=== PATIENT | female | born 1935 | race Caucasian/White ===

== ENCOUNTER 2019-10-21 19:14 | Inpatient (IN) | payer MEDICARE ==
[~2019-10-21] VITALS: Ht 160 cm; Wt 78.6 kg
[2019-10-21 19:20] VITALS: BP 169/57
[2019-10-21 19:32] LABS: BILIRUBIN NEGATIVE (NEGATIVE); BLOOD NEGATIVE (NEGATIVE); CLARITY CLEAR (CLEAR); COLOR YELLOW (YELLOW); GLUCOSE NEGATIVE (NEGATIVE); KETONE NEGATIVE (NEGATIVE); LEUKO ESTERASE TRACE (NEGATIVE); NITRITE NEGATIVE (NEGATIVE); SPECIFIC GRAVITY 1.005 (1.005-1.030); UROBILINOGEN 0.2 E.U./dl (0.2-1.0)
--- NOTE | 2019-10-21 19:41 | NUR ---
PATIENT IN BED DRINKING ORANGE JUICE AT THIS TIME. AOX3. VSS. RN WILL CONT TO MONITOR.
[2019-10-21 19:47] LABS: BACTERIA 2+; RBC 0-2 rbc/hpf (0-2)
[2019-10-21 19:54] LABS: URINE AMPHETAMINES < 1000 (1000ng/ml); URINE BARBITURATES < 200 (200ng/ml); URINE BENZODIAZEPINES < 200 (200ng/ml); URINE CANNABINOIDS (THC) < 50 (50ng/ml); URINE COCAINE < 300 (300ng/ml); URINE METHADONE < 300 (300ng/ml); URINE OPIATES < 300 (300ng/ml); URINE PHENCYCLIDINE < 25 (25ng/ml)
[2019-10-21 20:00] LABS: BASO % 0.7 % (0.0-1.0); EOS # 0.2 10*3/uL (0.0-0.4); EOS % 2.7 % (1.0-4.0); HEMATOCRIT 36.8 % (37.0-47.0); HEMOGLOBIN 11.9 g/dl (12.0-16.0); LYMPH % 17.8 % (27.0-41.0); MEAN CELL VOLUME 97.6 fl (81.0-99.0); MEAN CORPUSCULAR HGB 31.6 pg (27.0-31.0); MEAN CORPUSCULAR HGB CONC 32.3 g/dl (33.0-37.0); MEAN PLATELET VOLUME 9.4 fl (9.6-12.3); MONO # 0.5 10*3/uL (0.1-1.0); MONO % 9.6 % (3.0-9.0); NEUT # 3.8 10*3/uL (2.3-7.9); NEUT % 68.8 % (47.0-73.0); PLATELET COUNT AUTOMATED 230 10*3/uL (130-400); RED BLOOD COUNT 3.77 10*6/uL (4.10-5.10); RED CELL DISTRI WIDTH 13.6 % (0-14.5); WHITE BLOOD COUNT 5.5 10*3/uL (4.8-10.8)
[2019-10-21 20:15] LABS: ACETAMINOPHEN (TYLENOL) < 5.0 ug/ml (10-30); ACT PARTIAL THROMBO TIME 24.9 SECONDS (20.0-32.1); ALBUMIN 3.7 gm/dl (3.1-4.5); ALKALINE PHOSPHATASE 87 U/L (45-117); BUN 40 mg/dl (7-24); CHLORIDE 106 mmol/L (98-107); CREATININE 1.65 mg/dL (0.55-1.02); ETHYL ALCOHOL < 3.0 mg/dl (<3); INTERNATIONAL NORM RATIO 0.9 (2.0-3.5); LIPASE 769 U/L (73-393); POTASSIUM 3.5 mmol/L (3.5-5.1); SGOT/AST 26 IU/L (3-35); SGPT/ALT 20 U/L (12-78); SODIUM 139 mmol/L (136-145); TOTAL PROTEIN 7.8 gm/dL (6.4-8.2); TROPONIN I < 0.015 ng/ml (<0.045)
[2019-10-21 20:23] VITALS: BP 128/60
--- NOTE | 2019-10-21 21:10 | NUR ---
PATIENT AMBULATORY TO THE RESTROOM AT THIS TIME
--- NOTE | 2019-10-21 21:17 | NUR ---
PATIENTS DAUGHTER INFORMED THAT PATIENT WILL BE ADMITTED.
[2019-10-21 21:42] VITALS: BP 130/60
[2019-10-22] VITALS: BP 150/84
--- NOTE | 2019-10-22 01:02 | NUR ---
PATIENT IN BED RESTING COMFORTABLY AOX3 EASILY AROUSED. NO DISTRESS NOTED. VOICES NO COMPLAINTS AT THIS TIME. RN WILL CONT TO MONITOR
[2019-10-22 01:30] VITALS: BP 150/84
--- NOTE | 2019-10-22 01:30 | NUR ---
Time: 129 A 83 year old FEMALE admitted to under services of ERNESTO GILLESPIE DO. Pt. arrived via stretcher from [facility]. Chief complaint: HYPOGLYCEMIA. NO WOUNDS ON ADMISSION. VACCINES UP TO DATE, FLU VACCINE THIS SEASON. ,HOMERO
[2019-10-22] MEDS ORDERED: SYNTHROID,LEVO75 MCG PO (01:38)
[2019-10-22] MEDS ORDERED: METFORMIN HYDR750 MG PO (01:38)
[2019-10-22] MEDS ORDERED: AMLODIPINE BESY10 MG PO (01:39)
[2019-10-22] MEDS ORDERED: GLIPIZIDE10 M1 PO (01:39)
[2019-10-22] MEDS ORDERED: FUROSEMIDE40 MG PO (01:39)
[2019-10-22] MEDS ORDERED: ALLOPURINOL300 MG PO (01:39)
[2019-10-22] MEDS ORDERED: ENALAPRIL MALEA20 MG PO (01:39)
[2019-10-22] MEDS ORDERED: ACEBUTOLOL HCL200 MG PO (01:40)
[2019-10-22] MEDS ORDERED: ATORVASTATIN CA40 M1 PO (01:41)
[2019-10-22] MEDS ORDERED: LIPITOR20 MG PO (02:09)
[2019-10-22] MEDS ORDERED: ASPIRIN81 M1 PO (02:10)
[2019-10-22] MEDS ORDERED: CALCIUM 600 +1 EA10 PO (02:21)
[2019-10-22] MEDS ORDERED: LANTUS SOL100 UNIT/1 SQ (02:22)
[2019-10-22 06:00] VITALS: BP 138/60
[2019-10-22 07:36] LABS: BASO % 0.6 % (0.0-1.0); EOS # 0.3 10*3/uL (0.0-0.4); EOS % 5.2 % (1.0-4.0); LYMPH # 1.9 10*3/uL (1.3-4.4); LYMPH % 35.8 % (27.0-41.0); MEAN CELL VOLUME 95.1 fl (81.0-99.0); MEAN CORPUSCULAR HGB 31.7 pg (27.0-31.0); MEAN CORPUSCULAR HGB CONC 33.3 g/dl (33.0-37.0); MEAN PLATELET VOLUME 9.7 fl (9.6-12.3); MONO # 0.8 10*3/uL (0.1-1.0); MONO % 14.7 % (3.0-9.0); NEUT # 2.3 10*3/uL (2.3-7.9); NEUT % 43.5 % (47.0-73.0); PLATELET COUNT AUTOMATED 227 10*3/uL (130-400); RED BLOOD COUNT 3.47 10*6/uL (4.10-5.10); RED CELL DISTRI WIDTH 13.6 % (0-14.5); WHITE BLOOD COUNT 5.2 10*3/uL (4.8-10.8)
[2019-10-22 07:59] LABS: CREATININE 1.25 mg/dL (0.55-1.02); PHOSPHOROUS 2.4 mg/dL (2.5-4.9); POTASSIUM 3.5 mmol/L (3.5-5.1)
[2019-10-22 08:00] VITALS: BP 130/54
[2019-10-22 08:07] LABS: FREE T4 1.22 ng/dl (0.76-1.46); THYROID STIM HORMONE (HS) 1.34 uIU/ml (0.358-4.75)
--- NOTE | 2019-10-22 11:20 | NUR ---
PT DISCHARGED HOME AT THIS TIME. [place]OCK REMOVED. PT TRANPORTED BY HER DAUGHTER.
[2019-10-24 13:45] LABS: VITAMIN D, 25-HYDROXY 49.8 ng/mL (30-100)
== END 2019-10-22 11:22 | disposition home or self-care (01) | DRG 638 ==
LOC: ED 19:14 → EDHOLD 10-22 00:41 → 4E 10-22 00:41
PROVIDERS: Emergency Medicine Emergency Medical Services; Internal Medicine; ADMIT Family Medicine
DX: E11.649 Type 2 diabetes mellitus with hypoglycemia without coma (principal); E87.2 Acidosis; N17.0 Acute kidney failure with tubular necrosis; I10 Essential (primary) hypertension; E03.9 Hypothyroidism, unspecified; D64.9 Anemia, unspecified; R00.1 Bradycardia, unspecified; R74.8 Abnormal levels of other serum enzymes; N28.1 Cyst of kidney, acquired; M1A.9XX0 Chronic gout, unspecified, without tophus (tophi); M19.90 Unspecified osteoarthritis, unspecified site; E78.5 Hyperlipidemia, unspecified; Z82.3 Family history of stroke; Z83.3 Family history of diabetes mellitus; Z82.49 Family history of ischemic heart disease and other diseases of the circulatory system; Z88.5 Allergy status to narcotic agent; Z83.6 Family history of other diseases of the respiratory system; Z79.4 Long term (current) use of insulin

== ENCOUNTER 2020-04-07 15:16 | Emergency (ER) | payer MEDICARE ==
[~2020-04-07] VITALS: Ht 160 cm; Wt 78.5 kg
[~2020-04-07 15:16] MED LIST: ACEBUTOLOL HCL200 MG PO; ALLOPURINOL300 MG PO; AMLODIPINE BESY10 MG PO; ASPIRIN81 M1 PO; ATORVASTATIN CA40 M1 PO; CALCIUM 600 +1 EA10 PO; ENALAPRIL MALEA20 MG PO; FUROSEMIDE40 MG PO; GLIPIZIDE10 M1 PO; LANTUS SOL100 UNIT/1 SQ; LIPITOR20 MG PO; METFORMIN HYDR750 MG PO; SYNTHROID,LEVO75 MCG PO
== END 2020-04-07 18:39 | disposition home or self-care (01) ==
LOC: ED 15:16
DX: S59.911A Unspecified injury of right forearm, initial encounter (principal); Z88.6 Allergy status to analgesic agent; Z79.899 Other long term (current) drug therapy; Z79.82 Long term (current) use of aspirin; W16.012A Fall into swimming pool striking water surface causing other injury, initial encounter; Y93.11 Activity, swimming; Y92.34 Swimming pool (public) as the place of occurrence of the external cause; Y99.8 Other external cause status

== ENCOUNTER 2022-10-18 20:10 | Emergency (ER) | payer MEDICARE ==
[~2022-10-18] VITALS: Ht 167.6 cm; Wt 78.5 kg
[2022-10-18 21:01] LABS: BASO % 0.5 % (0.0-1.0); EOS # 0.1 10*3/uL (0.0-0.4); HEMATOCRIT 35.8 % (37.0-47.0); LYMPH # 0.6 10*3/uL (1.3-4.4); LYMPH % 9.6 % (27.0-41.0); MEAN CELL VOLUME 91.6 fl (81.0-99.0); MEAN CORPUSCULAR HGB 29.7 pg (27.0-31.0); MEAN CORPUSCULAR HGB CONC 32.4 g/dl (33.0-37.0); MEAN PLATELET VOLUME 9.3 fl (9.6-12.3); MONO # 0.6 10*3/uL (0.1-1.0); MONO % 10.6 % (3.0-9.0); NEUT # 4.6 10*3/uL (2.3-7.9); NEUT % 78.1 % (47.0-73.0); PLATELET COUNT AUTOMATED 232 10*3/uL (130-400); RED BLOOD COUNT 3.91 10*6/uL (4.10-5.10); RED CELL DISTRI WIDTH 14.4 % (0-14.5); WHITE BLOOD COUNT 5.9 10*3/uL (4.8-10.8)
[2022-10-18 21:17] LABS: POTASSIUM 3.9 mmol/L (3.4-5.1)
[2022-10-18 22:01] LABS: BILIRUBIN Negative (Negative); BLOOD Negative (Negative); CLARITY Clear (Clear); COLOR Yellow (Yellow); GLUCOSE Negative (Negative); KETONE Negative (Negative); LEUKO ESTERASE 1+ (Negative); NITRITE Negative (Negative); PH 6.5 (4.5-8.0); UROBILINOGEN 0.2 E.U./dl (0.0-1.0)
[2022-10-18 22:56] LABS: WBC 16-20 wbc/hpf (0-5)
== END 2022-10-19 01:29 | disposition home or self-care (01) ==
LOC: ED 20:10
PROVIDERS: Emergency Medicine
DX: S76.011A Strain of muscle, fascia and tendon of right hip, initial encounter (principal); E11.649 Type 2 diabetes mellitus with hypoglycemia without coma; I10 Essential (primary) hypertension; M19.90 Unspecified osteoarthritis, unspecified site; M10.9 Gout, unspecified; E78.5 Hyperlipidemia, unspecified; E03.9 Hypothyroidism, unspecified; Z88.5 Allergy status to narcotic agent; Z68.25 Body mass index [BMI] 25.0-25.9, adult; Z90.710 Acquired absence of both cervix and uterus; Z98.890 Other specified postprocedural states; E78.00 Pure hypercholesterolemia, unspecified; Z79.899 Other long term (current) drug therapy; W07.XXXA Fall from chair, initial encounter; Y93.89 Activity, other specified; Y92.89 Other specified places as the place of occurrence of the external cause; Y99.8 Other external cause status

== ENCOUNTER 2023-07-04 10:23 | Emergency (ER) | payer MEDICARE ==
[~2023-07-04] VITALS: Ht 160 cm; Wt 79.9 kg
[2023-07-04 12:33] LABS: BASO % 0.7 % (0.0-1.0); EOS # 0.3 10*3/uL (0.0-0.4); EOS % 5.2 % (1.0-4.0); HEMATOCRIT 32.6 % (37.0-47.0); LYMPH # 1.5 10*3/uL (1.3-4.4); LYMPH % 26.8 % (27.0-41.0); MEAN CELL VOLUME 90.6 fl (81.0-99.0); MEAN CORPUSCULAR HGB 30.3 pg (27.0-31.0); MEAN CORPUSCULAR HGB CONC 33.4 g/dl (33.0-37.0); MEAN PLATELET VOLUME 8.6 fl (9.6-12.3); MONO # 0.8 10*3/uL (0.1-1.0); NEUT # 2.8 10*3/uL (2.3-7.9); NEUT % 52.1 % (47.0-73.0); PLATELET COUNT AUTOMATED 237 10*3/uL (130-400); RED CELL DISTRI WIDTH 16.1 % (0-14.5); WHITE BLOOD COUNT 5.4 10*3/uL (4.8-10.8)
[2023-07-04 12:43] LABS: ACT PARTIAL THROMBO TIME 46.8 SECONDS (20.0-32.1)
[2023-07-04 12:56] LABS: TOTAL PROTEIN 6.3 gm/dL (6.0-8.0)
== END 2023-07-04 15:30 | disposition home or self-care (01) ==
LOC: ED 10:23
PROVIDERS: Family Medicine
DX: D68.318 Other hemorrhagic disorder due to intrinsic circulating anticoagulants, antibodies, or inhibitors (principal); T14.90XA Injury, unspecified, initial encounter; F17.210 Nicotine dependence, cigarettes, uncomplicated; W01.10XA Fall on same level from slipping, tripping and stumbling with subsequent striking against unspecified object, initial encounter; Y93.89 Activity, other specified; Y92.009 Unspecified place in unspecified non-institutional (private) residence as the place of occurrence of the external cause; Y99.8 Other external cause status